=== PATIENT | female | born 1990 | race American Indian/Alaskan Native ===

== ENCOUNTER 2018-11-13 00:12 | Inpatient (IN) | payer OTHER ==
[~2018-11-13] VITALS: Ht 213.4 cm; Wt 5.0 kg
== END 2018-11-14 11:36 | disposition home or self-care (01) | DRG 818 ==
LOC: ER 00:12 → OB/GYN 12:31 → SEC-K 12:31 → OB/GYN 16:13
PROVIDERS: Surgery; ADMIT Specialist
PROC: BW40ZZZ Ultrasonography of Abdomen (ICD-10-PCS; 2018-11-13)
PROC: BW30ZZZ Magnetic Resonance Imaging (MRI) of Abdomen (ICD-10-PCS; 2018-11-13)
PROC: BW3GZZZ Magnetic Resonance Imaging (MRI) of Pelvic Region (ICD-10-PCS; 2018-11-13)
PROC: 0DTJ4ZZ Resection of Appendix, Percutaneous Endoscopic Approach (ICD-10-PCS; principal; 2018-11-13 16:00)
DX: O99.611 Diseases of the digestive system complicating pregnancy, first trimester (principal); K35.890 Other acute appendicitis without perforation or gangrene; Z34.81 Encounter for supervision of other normal pregnancy, first trimester
CPT/HCPCS: 72195; 74181

== ENCOUNTER 2019-05-30 13:15 | Inpatient (IN) | payer OTHER ==
[~2019-05-30] VITALS: Ht 170.2 cm; Wt 3.2 kg
== END 2019-06-08 13:20 | disposition home or self-care (01) | DRG 785 ==
LOC: O/R 13:15 → OB/GYN 06-05 12:00
PROVIDERS: ADMIT Specialist
PROC: 0UB70ZZ Excision of Bilateral Fallopian Tubes, Open Approach (ICD-10-PCS; 2019-06-05)
PROC: 4A033R1 Measurement of Arterial Saturation, Peripheral, Percutaneous Approach (ICD-10-PCS; 2019-06-05)
PROC: 4A1HXCZ Monitoring of Products of Conception, Cardiac Rate, External Approach (ICD-10-PCS; 2019-06-05)
PROC: 10D00Z1 Extraction of Products of Conception, Low, Open Approach (ICD-10-PCS; principal; 2019-06-05 12:00)
DX: O82 Encounter for cesarean delivery without indication (principal); O34.211 Maternal care for low transverse scar from previous cesarean delivery; Z3A.39 39 weeks gestation of pregnancy; Z30.2 Encounter for sterilization; Z37.0 Single live birth